=== PATIENT | female | born 1995 | race Two or more races ===

== ENCOUNTER 2019-02-08 06:52 | Inpatient (IN) | payer OTHER ==
[~2019-02-08] VITALS: Ht 177.8 cm; Wt 295.0 kg
[2019-02-08] MEDS ORDERED: PRENATAL 19 TA1 EACH PO (08:28)
[2019-02-08] MEDS ORDERED: SYNTHROID50 MCG PO (08:29)
== END 2019-02-10 13:29 | DRG 807 ==
LOC: LDR 06:52 → OB/GYN 06:52
PROVIDERS: ADMIT Obstetrics & Gynecology
PROC: 10E0XZZ Delivery of Products of Conception, External Approach (ICD-10-PCS; principal; 2019-02-08)
PROC: 4A0HXFZ Measurement of Products of Conception, Cardiac Rhythm, External Approach (ICD-10-PCS; 2019-02-08)
DX: O80 Encounter for full-term uncomplicated delivery (principal); Z37.0 Single live birth; Z3A.38 38 weeks gestation of pregnancy

== ENCOUNTER 2024-05-31 11:44 | Inpatient (IN) | payer OTHER ==
[~2024-05-31] VITALS: Ht 175.3 cm; Wt 2.7 kg
[~2024-05-31 11:44] MED LIST: PRENATAL 19 TA1 EACH PO; SYNTHROID50 MCG PO
[2024-05-31] MEDS ORDERED: RINGERS SOLUTION,LACTATED 1,000 ML IV SCH ×2 (13:00→21:45)
[2024-05-31] MEDS ORDERED: OXYTOCIN 20 UNITS/500ML RL PIGGYBAG IV ONE (13:02)
[2024-05-31 13:12] LABS: HEMATOCRIT 32.8 % (36.0-45.00); HEMOGLOBIN 10.7 g/dL (12.0-15.00); MEAN CELL VOLUME 75.5 fL (80.00-100.00); MEAN CORPUSCULAR HEMOGLOBIN 24.6 pg (27.00-32.0); MEAN CORPUSCULAR HGB CONC 32.6 g/dl (32.0-36.0); PLATELET COUNT 207 K/uL (150-450); RED BLOOD COUNT 4.35 M/uL (4.00-6.00); RED CELL DISTRIBUTION WIDTH 18.3 % (11.5-14.5)
[2024-05-31 13:24] LABS: PH,URINE 5.5 (5.0-8.0); URINE APPEARANCE Clear; URINE BILIRRUBIN Negative (NEGATIVE); URINE BLOOD Negative; URINE COLOR Dark Yellow; URINE GLUCOSE Negative (NEGATIVE); URINE LEUKOCYTE Moderate; URINE NITRATE Negative; URINE PROTEIN Trace (NEGATIVE)
[2024-05-31 13:27] LABS: URINE BACTERIA 1708.4 uL (0.0-1933); URINE EPITHELIAL CELLS 27.2 uL (0.0-38.8); URINE RBC 7.6 uL (0.0-20.8); URINE WBC 381.7 uL (0.0-23.2)
[2024-05-31 13:29] LABS: URINE CAST 0.15 uL (0.0-1.40); URINE KETONE 80 (NEGATIVE)
[2024-05-31] MEDS ORDERED: OXYTOCIN 500 ML IV ONE (13:30)
[2024-05-31 13:35] LABS: INR 0.98; PARTIAL THROMBOPLASTIN TIME 30.1 SECONDS (22.0-34.0); PROTHROMBIN TIME 10.7 SECONDS (9.0-11.5)
[2024-05-31 13:49] LABS: URINE CRYSTALS FEW /HPF; URINE MUCUS HEAVY
[2024-05-31 15:32] VITALS: BP 126/62
[2024-05-31] MEDS ORDERED: OXYTOCIN 10 UNITS/ML VIAL ONE (19:28)
[2024-05-31] MEDS ORDERED: ERYTHROMYCIN BASE 1 GM TUBE OP ONE (19:28)
[2024-05-31] MEDS ORDERED: CEFOXITIN SODIUM 2,000 MG VIAL IV ONE (19:50)
[2024-05-31] MEDS ORDERED: METHYLERGONOVINE MALEATE 0.2 MG/ML AMPUL ONE (20:46)
[2024-05-31] MEDS ORDERED: KETOROLAC TROMETHAMINE 60 MG VIAL IM STA (21:42)
[2024-05-31] MEDS ORDERED: OXYTOCIN 1,000 ML IV SCH (21:45)
[2024-05-31] MEDS ORDERED: CHLORHEXIDINE GLUCONATE 120 ML BOTTLE TOP NR (21:45)
[2024-05-31] MEDS ORDERED: MEPERIDINE HCL/PF 50 MG/ML VIAL IM PRN (21:45)
[2024-05-31] MEDS ORDERED: PROMETHAZINE HCL 25 MG/ML AMPUL IM PRN (21:45)
[2024-05-31] MEDS ORDERED: ERYTHROMYCIN BASE 1 GM TUBE OP SCH (21:45)
[2024-06-01] MEDS ORDERED: OXYTOCIN 10 UNITS/ML VIAL ONE (01:51)
[2024-06-01 03:04] VITALS: BP 109/67
[2024-06-01 03:37] LABS: HEMATOCRIT 33.1 % (36.0-45.00); MEAN CELL VOLUME 75.4 fL (80.00-100.00); MEAN CORPUSCULAR HGB CONC 33.1 g/dl (32.0-36.0); PLATELET COUNT 178 K/uL (150-450); RED BLOOD COUNT 4.39 M/uL (4.00-6.00)
[2024-06-01 08:48] VITALS: BP 134/82
[2024-06-01] MEDS ORDERED: OxyCODONE HCL/APAP UD (PERCOCET) PO PRN (09:00)
[2024-06-01 16:45] VITALS: BP 118/77
[2024-06-02] VITALS: BP 108/75
[2024-06-02 09:17] VITALS: BP 140/76
[2024-06-02] MEDS ORDERED: IBUprofen 800 MG TABLET PO SCH (13:00)
[2024-06-02 17:12] VITALS: BP 114/80
== END 2024-06-02 17:58 | disposition home or self-care (01) | DRG 785 ==
LOC: LDR 11:44 → O/R 11:44 → OB/GYN 11:44 → O/R 19:46 → OB/GYN 22:41
PROVIDERS: ADMIT Obstetrics & Gynecology; ATTEND Obstetrics & Gynecology
PROC: 0UB70ZZ Excision of Bilateral Fallopian Tubes, Open Approach (ICD-10-PCS; 2024-05-31)
PROC: 4A1HXCZ Monitoring of Products of Conception, Cardiac Rate, External Approach (ICD-10-PCS; 2024-05-31)
PROC: 10D00Z1 Extraction of Products of Conception, Low, Open Approach (ICD-10-PCS; principal; 2024-05-31 21:00)
DX: O36.8330 Maternal care for abnormalities of the fetal heart rate or rhythm, third trimester, not applicable or unspecified (principal); Z3A.39 39 weeks gestation of pregnancy; Z37.0 Single live birth; Z20.822 Contact with and (suspected) exposure to COVID-19; Z30.2 Encounter for sterilization